=== PATIENT | female | born 1980 | race Two or more races ===

== ENCOUNTER 2017-10-18 03:08 | Emergency (ER) | payer BC ==
[2017-10-18 03:17] VITALS: BP 114/67
[2017-10-18] MEDS ORDERED: Sodium Chloride 0.9% 10 ML Syringe FLUSH PRN (03:56)
[2017-10-18] MEDS ORDERED: Ondansetron 4 MG/2 ML SDV IVPUSH ONE (03:57)
[2017-10-18] MEDS ORDERED: Famotidine 20 MG/2 ML SDV IVPUSH ONE (03:57)
[2017-10-18] MEDS ORDERED: Sodium Chloride 0.9% 1,000 ML IV ONE (03:57)
--- NOTE | 2017-10-18 03:58 | EDM.PDOC ---
ED HPI GENERAL MEDICAL PROBLEM - General Chief Complaint: Respiratory Problem Stated Complaint: VOMMITING AND SOB Time Seen by Provider: 10/18/17 03:56 Source of Information: Reports: Patient History Limitations: Reports: No Limitations - History of Present Illness INITIAL COMMENTS - FREE TEXT/NARRATIVE: The patient is a 37-year-old female who woke from sleep this evening with shortness of breath and vomiting. She states that she vomited several times before arriving to the emergency department. She also feels mildly short of breath. No chest pain. She feels dizzy. She felt fine when she went to sleep last night. Denies abdominal pain. No diarrhea. No cough. Her children are ill with upper respiratory infections but they don't have vomiting or diarrhea. No known exposure to contaminated food or water. No fever. She is feeling somewhat better but still has some dizziness and nausea. 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: - Past Surgical History Female Surgical History: Reports: Section Other Female Surgeries/Procedures: x2 Social & Family History - Family History Family Medical History: Noncontributory Cardiac: Reports: Hypertension Endocrine/Metabolic: Reports: Diabetes, type II - Tobacco Use Smoking Status *Q: Unknown Ever Smoked - Caffeine Use Caffeine Use: Reports: None - Recreational Drug Use Recreational Drug Use: No ED ROS GENERAL - Review of Systems Review Of Systems: See Below Constitutional: Denies: Fever HEENT: Reports: No Symptoms Respiratory: Reports: Shortness of Breath Cardiovascular: Denies: Chest Pain Endocrine: Reports: No Symptoms GI/Abdominal: Reports: Nausea, Vomiting : Reports: No Symptoms Musculoskeletal: Reports: No Symptoms Skin: Reports: No Symptoms Neurological: Reports: No Symptoms Psychiatric: Reports: No Symptoms Hematologic/Lymphatic: Reports: No Symptoms Immunologic: Reports: No Symptoms ED EXAM, GENERAL - Physical Exam Exam: See Below Exam Limited By: No Limitations General Appearance: Alert, WD/WN, No Apparent Distress Eye Exam: Bilateral Eye: Normal Inspection Ears: Normal External Exam Nose: Normal Inspection Throat/Mouth: Normal Inspection, Normal Oropharynx, Normal Voice, No Airway Compromise Head: Atraumatic, Normocephalic Neck: Normal Inspection, Supple, Non-Tender, Full Range of Motion Respiratory/Chest: No Respiratory Distress, Lungs Clear, Normal Breath Sounds, No Accessory Muscle Use, Chest Non-Tender Cardiovascular: Normal Peripheral Pulses, Regular Rate, Rhythm, No Edema GI/Abdominal: Soft, Non-Tender, No Distention Back Exam: Normal Inspection Extremities: Normal Inspection, No Pedal Edema Neurological: Alert, Oriented, CN II-XII Intact, Normal Cognition, No Motor/ Sensory Deficits Psychiatric: Normal Affect, Normal Mood Skin Exam: Warm, Dry, Intact, Normal Color, No Rash Course - Vital Signs Last Recorded V/S: Last Vital Signs Temp 36.6 C 10/18/17 03:14 Pulse 70 10/18/17 03:14 Resp 18 10/18/17 03:14 BP 114/67 10/18/17 03:14 Pulse Ox 100 10/18/17 03:14 - Orders/Labs/Meds Orders: Active Orders 24 hr Category Date Time Status EKG 12 Lead [EKG Documentation Completion] [RC] STAT Care 10/18/17 03:56 Active Peripheral IV Care [RC] . DIRECTED Care 10/18/17 03:56 Active Peripheral IV Care [RC] . DIRECTED Care 10/18/17 03:56 Active Chest 1V Frontal [CR] Stat Exams 10/18/17 03:56 Taken UA W/MICROSCOPIC [URIN] Stat Lab 10/18/17 03:56 Stop Req Sodium Chloride 0.9% [Saline Flush] Med 10/18/17 03:56 Active 10 ml FLUSH ASDIRECTED PRN Peripheral IV Insertion Adult [OM.PC] Routine Oth 10/18/17 03:56 Ordered Medication Orders Sodium Chloride (Saline Flush) 10 ml FLUSH ASDIRECTED PRN PRN Reason: Keep Vein Open Last Admin: 10/18/17 04:25 Dose: 10 ml Labs: Laboratory Tests 10/18/17 10/18/17 Range/Units 04:27 04:27 WBC 8.77 (3.98-10.04) K/mm3 RBC 5.03 (3.98-5.22) M/mm3 Hgb 13.8 (11.2-15.7) gm/L Hct 41.9 (34.1-44.9) % MCV 83.3 (79.4-94.8) fl MCH 27.4 (25.6-32.2) pg MCHC 32.9 (32.2-35.5) g/dl RDW Std Deviation 41.6 (36.4-46.3) fL Plt Count 355 (182-369) K/mm3 MPV 9.1 L (9.4-12.3) fl Neut % (Auto) 72.1 H (34.0-71.1) % Lymph % (Auto) 19.0 L (19.3-51.7) % [place] % (Auto) 6.8 (4.7-12.5) % Eos % (Auto) 1.6 (0.7-5.8) Baso % (Auto) 0.3 (0.1-1.2) % Neut # (Auto) 6.31 H (1.56-6.13) K/mm3 Lymph # (Auto) 1.67 (1.18-3.74) K/mm3 [place] # (Auto) 0.60 H (0.24-0.36) K/mm3 Eos # (Auto) 0.14 (0.04-0.36) K/mm3 Baso # (Auto) 0.03 (0.01-0.08) K/mm3 Sodium 138 (136-145) mEq/L Potassium 3.8 (3.5-5.1) mEq/L Chloride 103 (98-107) mEq/L Carbon Dioxide 27 (21-32) mEq/L Anion Gap 11.8 (5-15) BUN 14 (7-18) mg/dL Creatinine 0.8 (0.55-1.02) mg/dL Est Cr Clr Drug Dosing 71.24 mL/min Estimated GFR (MDRD) > 60 (>60) mL/min BUN/Creatinine Ratio 17.5 (14-18) Glucose 145 H (74-106) mg/dL Calcium 8.8 (8.5-10.1) mg/dL Magnesium 2.0 (1.8-2.4) mg/dl Total Bilirubin 0.3 (0.2-1.0) mg/dL AST 15 (15-37) U/L ALT 26 (14-59) U/L Alkaline Phosphatase 89 (46-116) U/L Troponin I < 0.017 (0.00-0.056) ng/mL Total Protein 8.4 H (6.4-8.2) g/dl Albumin 3.8 (3.4-5.0) g/dl Globulin 4.6 gm/dL Albumin/Globulin Ratio 0.8 L (1-2) Lipase 115 (73-393) U/L Meds: Medications Generic Name Dose Route Start Last Admin Trade Name Freq PRN Reason Stop Dose Admin Sodium Chloride 10 ml 10/18/17 03:56 10/18/17 04:25 Saline Flush FLUSH 10 ml ASDIRECTED PRN Administration Keep Vein Open Discontinued Medications Generic Name Dose Route Start Last Admin Trade Name Freq PRN Reason Stop Dose Admin Famotidine 20 mg 10/18/17 03:57 10/18/17 04:25 Pepcid IVPUSH 10/18/17 03:58 20 mg ONETIME ONE Administration Sodium Chloride 1,000 mls @ 1,000 mls/hr 10/18/17 03:57 10/18/17 04:25 Normal Saline IV 10/18/17 04:56 1,000 mls/hr ONETIME ONE Administration Ondansetron HCl 4 mg 10/18/17 03:57 10/18/17 04:26 Zofran IVPUSH 10/18/17 03:58 4 mg ONETIME ONE Administration - Re-Assessments/Exams Free Text/Narrative Re-Assessment/Exam: 10/18/17 05:01 EKG shows normal sinus rhythm, T-wave inversion in lead V2 and T-wave flattening in lead 3, no significant ST abnormality. CBC is normal. Her vital signs are normal. CXR shows no acute abnormality. Labs including CBC, chem, LFT' s, lipase, trop, are all normal. She is feeling much better after fluids and zofran. 10/18/17 05:10 Departure - Departure Time of Disposition: 05:08 Disposition: Home, Self-Care 01 Clinical Impression: Vomiting Qualifiers: Vomiting type: unspecified Vomiting Intractability: non-intractable Nausea presence: with nausea Qualified Code(s): R11.2 - Nausea with vomiting, unspecified - Discharge Information Prescriptions: Ondansetron [Zofran ODT] 4 mg PO Q6H PRN #12 tab.dis PRN Reason: Nausea Referrals: Ida Cuevas PA [Primary Care Provider] - Forms: ED Department Discharge Additional Instructions: 1. Drink plenty of fluids. 2. Take zofran as needed for nausea 3. Return to the ED if you have severe vomiting, abdominal pain, fever, difficulty breathing, or other concerning symptoms 4. You may also follow up with a primary care provider. Call [phone] if you'd like to schedule with a provider here. - My Orders Last 24 Hours: My Active Orders 10/18/17 03:56 EKG 12 Lead [EKG Documentation Completion] [RC] STAT Peripheral IV Care [RC] . DIRECTED Peripheral IV Care [RC] . DIRECTED Chest 1V Frontal [CR] Stat UA W/MICROSCOPIC [URIN] Stat Sodium Chloride 0.9% [Saline Flush] 10 ml FLUSH ASDIRECTED PRN Peripheral IV Insertion Adult [OM.PC] Routine - Assessment/Plan Last 24 Hours: My Active Orders 10/18/17 03:56 EKG 12 Lead [EKG Documentation Completion] [RC] STAT Peripheral IV Care [RC] . DIRECTED Peripheral IV Care [RC] . DIRECTED Chest 1V Frontal [CR] Stat UA W/MICROSCOPIC [URIN] Stat Sodium Chloride 0.9% [Saline Flush] 10 ml FLUSH ASDIRECTED PRN Peripheral IV Insertion Adult [OM.PC] Routine
--- NOTE | 2017-10-19 08:29 | CR ---
Chest: Frontal view of the chest was obtained. Comparison: No prior chest x-ray. Heart size is slightly generous but most likely accentuated from technique. Upper mediastinum is normal. Lungs are clear. Bony structures appear grossly intact. Impression: 1. Nothing acute is appreciated on frontal chest x-ray. Diagnostic code #2
== END 2017-10-18 05:15 | disposition home or self-care (01) ==
LOC: JD.ED 03:08
DX: R11.2 Nausea with vomiting, unspecified (principal)
CPT/HCPCS: 36415; 71045; 80053; 83690; 83735; 84484; 85025; 93005; 96361; 96374; 96375; 99284; J2405; J7040; J7050; 93010

== ENCOUNTER 2018-10-20 05:29 | Inpatient (IN) | payer BC ==
--- NOTE | 2018-10-19 20:33 | PCM.LDHP ---
L&D History of Present Illness - General Date of Service: 10/20/18 Admit Problem/Dx: Admission Diagnosis/Problem Admission Diagnosis/Problem 10/19/18 20:19 Dalia is a 38-year-old 3 para 2003 female who is admitted on 2018 for elective repeat section. DAYNE 10/25/2018 placing her presently at 39-2/7 weeks gestational age. Previous section was done in the [facility] and type of uterine scar is unknown. Source of Information: Patient History Limitations: Reports: No Limitations - History of Present Illness Introduction:: Dalia is a 38-year-old 3 para 2003 female who is admitted on 2018 for elective repeat section. DAYNE 10/25/2018 placing her presently at 39-2/7 weeks gestational age. Previous section was done in the [facility] and type of uterine scar is unknown. 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 She was seen on a reasonably regular basis during the course of her . Her weight gain was from 140.2 pounds up to 179 pounds 4 approximately 39 pound weight gain. Patient had her 1 hour GTT done rather late in due to her failure to come in for the tests. This came back elevated and patient declined doing a 3 hour glucose tolerance test. Her GTT was 166. The patient underwent a ingrown A1c which was also elevated and patient was given the diagnosis of gestational diabetic. Her blood sugars were monitored, found to be elevated and patient was started on glyburide. Glyburide was increased to 5 mg by mouth daily at bedtime. Patient however did not tolerate this well and stopped it altogether. She has not been restarted on glyburide 2.5 mg. Her blood sugars have been less than optimally controlled. Patient has reported that she has not followed the diet as closely as she should 've. Clinical history and findings consistent with suboptimally controlled station diabetes cannot rule out the possibility of adult-onset diabetes as patient was checked prior to the . Patient declined genetic testing. The PDS score on 06/14/2018 was 0/30. She is group B strep positive. plans to breast-feed. Ultrasound was done 4 during the course of at 13-3/7 weeks, 16-1/7 weeks and 22-6/7 weeks and at 30-5/7 weeks. All of been fairly consistent with her certain last menstrual period 01/18/2018 dating for an DAYNE of 10/25/2018. Fundal height growth has been ahead of schedules last fundal height measurement at 45 cm. Previous history shows menarche at age 9. He can see of menses every 28-30 days. No control contraception. Final certain DAYNE was 01/18/2018. Her deliveries have included the followin. Male infant born 10/16/2017 at 38 weeks gestational age. 9 lbs. 13 oz. born via repeat section at [facility] child's name is ramu 2. Female born 07/10/2012 at 40 weeks' gestational age after 13 hours of labor7 lbs. 6 oz. infant born by section done for failure to progress. Child's name is Erick Laboratory testing shows blood to be O+ with negative DE screen. First hemoglobin is 12.6 g deciliter and platelets were 333,000. She is rubella immune. RPR is nonreactive. Urine culture was unremarkable. Hepatitis B surface antigen and HIV assays were both negative. Her chlamydia and gonorrhea assays were both negative. Second trimester labs showed hemoglobin 11.1 g/dL and platelets 362,000. Her 1 hour GTT was 166. Hemoglobin A1c was elevated and patient was given the diagnosis of gestational hypertension. Group B strep screen was positive Allergies: None Medications: 1. vitamins 1 by mouth daily 2. Glyburide 2.5 mg by mouth daily Past medical history: 1. Gestational diabetes. Past surgical history: 1. 2 Family history: Father is alive with adult onset diabetes mellitus diagnosis. Mother is alive with hypercholesterolemia and goutpresently on medications. 3 brothers alive and well. One sister secondary to motor vehicle accident. No bleeding, blood clotting, anesthesia or -related problems otherwise noted in the family. 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 She is a college graduate. She does not use any significant muscle L call, drugs or tobacco. She lives in [facility] with her Jake. Review of systems: In general patient has no complaints. Very uncomfortable secondary to the size of her . In active. Skin: Negative Lungs: No infectious symptoms or shortness of breath Cardiovascular: No chest pain or exercise intolerance Breasts: Changes associated with . GI: Negative : changes including increased fundal height. Fundal height presently at 45 cm on last evaluation clinic. Musculoskeletal: Negative Neurological: Negative In general the patient is well-developed, well-nourished, pleasant female of stated age in no acute distress. Skin is warm dry without lesions. HEENT, neck and back within normal limits. Lungs are clear with good breath sounds in all lung guadarrama. Cardiovascular exam shows regular and rhythm without murmurs. Breast exam deferred having been done at time of first visit and found to be normal. Patient plans to breast-feed. Nipples have been noted to be everted. Abdomen is very protuberant . Fundal height 45; last evaluation clinic. Genital exam is not performed as was declined by the patient. Extremities and neurological exam are grossly within normal limits. 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: - Past Surgical History Female Surgical History: Reports: Section Other Female Surgeries/Procedures: x2 Social & Family History - Family History Family Medical History: Noncontributory Cardiac: Reports: Hypertension Endocrine/Metabolic: Reports: Diabetes, type II - Caffeine Use Caffeine Use: Reports: None H&P Review of Systems - Review of Systems: Review Of Systems: See Below L&D Exam - Exam Exam: See Below - Patient Data Lab Results Last 24 hrs: Laboratory Results - last 24 hr 10/19/18 Range/Units 18:15 WBC 7.84 (3.98-10.04) K/mm3 RBC 4.35 (3.98-5.22) M/mm3 Hgb 11.1 L (11.2-15.7) gm/L Hct 35.1 (34.1-44.9) % MCV 80.7 D (79.4-94.8) fl MCH 25.5 L (25.6-32.2) pg MCHC 31.6 L (32.2-35.5) g/dl RDW Std Deviation 50.4 H (36.4-46.3) fL Plt Count 291 (182-369) K/mm3 MPV 10.5 (9.4-12.3) fl Result Diagrams: 10/19/18 18:15 Problem List Initiated/Reviewed/Updated: Yes Orders Last 24hrs: Active Orders 24 hr Category Date Time Status TYPE AND SCREEN [BBK] Routine Lab 10/19/18 18:15 Received Assessment/Plan Comment:: 1. 39-2/7 week gestational age admitted for elective repeat section. 2. History of gestational diabetes that is less than optimally controlled. History of macrosomic infant with last pregnancy9 lbs. 13 oz. 3. Group B strep screen positive 4. History of previous section 2 5. Rubella immune. Plan: 1. Repeat lower uterine segment transverse section through Pfannenstiel skin incision under spinal block. Procedure, risks, benefits, alternatives of care including attempt at vaginal delivery are discussed with patient. She appears to understand, wishes to proceed and has signed a consent. 2. DVT prophylaxis with SCDs 3. Infection prophylaxis with 2 g Ancef IV prior to surgery 4. Preoperative laboratory testing with CBC, type and screen, RPR 5. Routine care.
[~2018-10-20 05:29] MED LIST: Citric Acid/Sodium Citrate Solution 30 ML Cup PO ONE; Metoclopramide 10 MG/2 ML SDV IVPUSH ONE; Nalbuphine 10 MG/1 ML Vial IVPUSH PRN; Sodium Chloride 0.9% 10 ML Syringe FLUSH PRN; ceFAZolin 2 GM in Premix Bag 1 BAG IV ONE
[2018-10-20] MEDS ORDERED: Lactated Ringers 1,000 ML ONE ×3 (06:09→08:41)
[2018-10-20] MEDS ORDERED: Citric Acid/Sodium Citrate Solution 30 ML Cup ONE (06:09)
[2018-10-20] MEDS ORDERED: Metoclopramide 10 MG/2 ML SDV ONE (06:09)
[2018-10-20] MEDS: Lactated Ringers 1,000 ML IV SCH ×2 (06:14→06:43)
[2018-10-20] MEDS ORDERED: Bupivacaine 0.5% 30 ML SDV ONE (06:47)
[2018-10-20] MEDS ORDERED: Morphine PF 10 MG/10 ML SDV ONE (07:15)
[2018-10-20] MEDS ORDERED: ceFAZolin 1 GM Vial ONE (07:15)
[2018-10-20] MEDS ORDERED: Phenylephrine 1% 10 MG/ML SDV ONE (07:15)
[2018-10-20] MEDS ORDERED: Oxytocin 10 Units/1 ML SDV ONE ×2 (07:18→08:09)
[2018-10-20] MEDS ORDERED: Ketorolac 30 MG/ML SDV ONE (07:18)
[2018-10-20] MEDS ORDERED: Methylergonovine 0.2 MG/1 ML Amp ONE (08:15)
--- NOTE | 2018-10-20 09:08 | PCM.POSTAN ---
POST ANESTHESIA ASSESSMENT - MENTAL STATUS Mental Status: Alert, Oriented - VITAL SIGNS Pulse Rate: 65 SaO2: 97 Resp Rate: 15 Blood Pressure: 97/50 Temperature: 36.5 C - RESPIRATORY Respiratory Status: Respiratory Rate WNL, Airway Patent, O2 Saturation Stable, Supplemental Oxygen - CARDIOVASCULAR CV Status: Pulse Rate WNL, Blood Pressure Stable - GASTROINTESTINAL GI Status: No Symptoms - PAIN Pain Score: 0 - POST OP HYDRATION Hydration Status: Adequate & Stable - OBSERVATIONS Free Text/Narrative:: no anesthesia complications noted
--- NOTE | 2018-10-20 09:10 | PCM.PREANE ---
Preanesthetic Assessment - Anesthesia/Transfusion/Family Hx Anesthesia History: Prior Anesthesia Without Reaction Family History of Anesthesia Reaction: No Transfusion History: No Prior Transfusion(s) Type of Transfusion Reactions: Reports: Unknown - Review of Systems General: Malaise Pulmonary: No Symptoms Cardiovascular: Dyspnea on Exertion Gastrointestinal: Abdominal Pain (contractions) Neurological: No Symptoms Other: Reports: Diabetes (gestational 96 this am) - Physical Assessment NPO Status Date: 10/19/18 NPO Status Time: 21:00 Pulse: 65 O2 Sat by Pulse Oximetry: 97 Respiratory Rate: 15 Blood Pressure: 97/50 Temperature: 36.5 C Vital Signs: Last Vital Signs Temp 36.5 C 10/20/18 09:08 Pulse 65 10/20/18 09:08 Resp 15 10/20/18 09:08 BP 97/50 L 10/20/18 09:08 Pulse Ox 97 10/20/18 09:08 Height: 1.55 m Weight: 83.416 kg ASA Class: 2 Mental Status: Alert & Oriented x3 Airway Class: Mallampati = 1 Dentition: Reports: Normal Dentition Thyro-Mental Finger Breadths: 3 Mouth Opening Finger Breadths: 3 ROM/Head Extension: Full Lungs: Clear to Auscultation, Normal Respiratory Effort Cardiovascular: Regular Rate, Regular Rhythm - Lab Values: Laboratory Last Values WBC 7.84 K/mm3 (3.98-10.04) 10/19/18 18:15 RBC 4.35 M/mm3 (3.98-5.22) 10/19/18 18:15 Hgb 11.1 gm/L (11.2-15.7) L 10/19/18 18:15 Hct 35.1 % (34.1-44.9) 10/19/18 18:15 MCV 80.7 fl (79.4-94.8) D 10/19/18 18:15 MCH 25.5 pg (25.6-32.2) L 10/19/18 18:15 MCHC 31.6 g/dl (32.2-35.5) L 10/19/18 18:15 RDW Std Deviation 50.4 fL (36.4-46.3) H 10/19/18 18:15 Plt Count 291 K/mm3 (182-369) 10/19/18 18:15 MPV 10.5 fl (9.4-12.3) 10/19/18 18:15 POC Glucose 92 mg/dL (70-105) 10/20/18 05:50 Blood Type O POSITIVE 10/19/18 18:15 Gel Antibody Screen Negative 10/19/18 18:15 - Allergies Allergies/Adverse Reactions: Allergies Allergy/AdvReac Type Severity Reaction Status Date / Time No Known Allergies Allergy Verified 10/20/18 05:07 - Anesthesia Plan Pre-Op Medication Ordered: None - Acknowledgements Anesthesia Type Planned: Spinal Pt an Appropriate Candidate for the Planned Anesthesia: Yes Alternatives and Risks of Anesthesia Discussed w Pt/Guardian: Yes Pt/Guardian Understands and Agrees with Anesthesia Plan: Yes PreAnesthesia Questionnaire - Past Health History Medical/Surgical History: Denies Medical/Surgical History Gastrointestinal History: Reports: GERD 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: Endocrine/Metabolic History: Reports: Diabetes, Gestational - Past Surgical History Female Surgical History: Reports: Section Other Female Surgeries/Procedures: x2 - SUBSTANCE USE Smoking Status *Q: Former Smoker Tobacco Use Within Last Twelve Months: Cigarettes Recreational Drug Use History: No - HOME MEDS Home Medications: Home Meds Ondansetron [Zofran ODT] 4 mg PO Q6H PRN #12 tab.dis 10/18/17 [Rx] glyBURIDE [Glyburide] 2.5 mg PO DAILY 10/05/18 [History] Pnv No.122/Iron/Folic Acid [ Multi Tablet] 1 each PO DAILY 10/20/18 [ History] - CURRENT (IN HOUSE) MEDS Current Meds: Current Medications Lactated Ringer's (Ringers, Lactated) 1,000 mls @ 125 mls/hr IV ASDIRECTED [facility] Last Admin: 10/20/18 06:43 Dose: 125 mls/hr Oxytocin 20 unit/ Lactated (Ringer's) 1,002 mls @ 500 mls/hr IV ASDIRECTED [facility] Cefazolin Sodium/Dextrose 1 gm (/ Premix) 25 mls @ 100 mls/hr IV Q8H QUAN Nalbuphine HCl (Nubain) 10 mg IVPUSH Q2H PRN PRN Reason: Pain Sodium Chloride (Saline Flush) 10 ml FLUSH ASDIRECTED PRN PRN Reason: Keep Vein Open Discontinued Medications Bupivacaine HCl (Marcaine 0.5%) Confirm Administered Dose 30 ml .ROUTE .STK-MED ONE Stop: 10/20/18 06:48 Cefazolin Sodium (Ancef) Confirm Administered Dose 2 gm .ROUTE .STK-MED ONE Stop: 10/20/18 07:16 Citric Acid/Sodium Citrate (Bicitra Solution) 30 ml PO ONETIME ONE Stop: 10/20/18 05:03 Last Admin: 10/20/18 07:12 Dose: 30 ml Citric Acid/Sodium Citrate (Bicitra Solution) Confirm Administered Dose 30 ml .ROUTE .STK-MED ONE Stop: 10/20/18 06:10 Last Admin: 10/20/18 07:38 Dose: Not Given Cefazolin Sodium/Dextrose 2 gm (/ Premix) 50 mls @ 100 mls/hr IV ONETIME ONE Stop: 10/20/18 05:31 Lactated Ringer's (Ringers, Lactated) Confirm Administered Dose 1,000 mls @ as directed .ROUTE .STK-MED ONE Stop: 10/20/18 06:10 Last Admin: 10/20/18 07:38 Dose: Not Given Lactated Ringer's (Ringers, Lactated) Confirm Administered Dose 1,000 mls @ as directed .ROUTE .STK-MED ONE Stop: 10/20/18 07:19 Lactated Ringer's (Ringers, Lactated) Confirm Administered Dose 1,000 mls @ as directed .ROUTE .STK-MED ONE Stop: 10/20/18 08:42 Ketorolac Tromethamine (Toradol) Confirm Administered Dose 30 mg .ROUTE .STK- MED ONE Stop: 10/20/18 07:19 Methylergonovine Maleate (Methergine) Confirm Administered Dose 0.2 mg .ROUTE .STK-MED ONE Stop: 10/20/18 08:16 Metoclopramide HCl (Reglan) 10 mg IVPUSH ONETIME ONE Stop: 10/20/18 05:03 Last Admin: 10/20/18 07:13 Dose: 10 mg Metoclopramide HCl (Reglan) Confirm Administered Dose 10 mg .ROUTE .STK-MED ONE Stop: 10/20/18 06:10 Last Admin: 10/20/18 07:38 Dose: Not Given Morphine Sulfate (Duramorph Pf) Confirm Administered Dose 10 mg .ROUTE .STK-MED ONE Stop: 10/20/18 07:16 Oxytocin (Pitocin) Confirm Administered Dose 10 unit .ROUTE .STK-MED ONE Stop: 10/20/18 07:19 Oxytocin (Pitocin) Confirm Administered Dose 10 unit .ROUTE .STK-MED ONE Stop: 10/20/18 08:10 Phenylephrine HCl (Raheel-Synephrine) Confirm Administered Dose 10 mg .ROUTE .STK- MED ONE Stop: 10/20/18 07:16
--- NOTE | 2018-10-20 09:11 | PCM.OPNOTE ---
- General Post-Op/Procedure Note Date of Surgery/Procedure: 10/20/18 Operative Procedure(s): Repeat lower uterine segment transverse section through Pfannenstiel skin incision Findings: Patient had a previous vertical midline skin/abdominal wall incision from her previous C-sections 2. The anterior abdominal wall was adhered and the anterior uterus was adhered to the front wall. Anterior uterus was adhered to the front abdominal wall essentially occluding the peritoneal reflection on the front side uterus. Baby is in an oblique position with head in the right lower quadrant but not engaged in the pelvis. Baby weighed 11 pounds 15.1 ounces, had Apgars of 2, 4 and 6 at 1, 5 and 10 minutes. Right ovary and fallopian tube appeared normal. Uterus was enlarged up as appropriate for the size of the baby. Left ovary and fallopian tube appeared to be surgically absent. There was dense adhesions on the left side which essentially did not allow the left side uterus to be externalized for closure. Amniotic fluid was clear. Pre Op Diagnosis: 1. 39-2/7 week intrauterine . 2. History of macrosomia, suspected macrosomia. 3. Suboptimally controlled diabetes in . 4. History of previous 2vertical midline abdominal incision, unknown uterine incision Post-Op Diagnosis: Same with 11 pounds 15.1 ounces female with Apgars 2, 4 and 6 at one, 5 and 10 minutes. Severe pelvic adhesions Anesthesia Technique: Spinal Other Anesthesia Type: Marcaine 0.5%20 mL total Primary Surgeon: Chuy Gallego Secondary Surgeon: Kristopher Hopper Anesthesia Provider: Jairo Fisher Faculty Head: Aaron Chaparro Reason Faculty Head Was Necessary: Retraction, assistance, patient safety, quality of care. Fluid Replacement, Intraop: 3,200 Output, Urine Amount: 550 EBL in mLs: 1,200 Drain/Tube Comments:: Indwelling bladder catheter Complications: None Condition: Good Free Text/Narrative:: Intake & Output 10/19/18 10/20/18 10/20/18 22:59 06:59 14:59 Intake Total 1000 Balance 1000 Surgery duration: 51 minutes Surgery duration: Procedure: The patient is appropriately consented. Patient was transferred to the room and placed in a sitting position. Spinal anesthesia was administered. After confirmation of adequate anesthesia patient was placed in a supine position with a wedge under her right side to facilitate left lateral positioning. The patient was prepped and draped in usual fashion after Villarreal catheter was already placed . The anesthetic was checked and found to be adequate. 20 mL of Marcaine 0.5% was injected locally in the Pfannenstiel incision site. The Pfannenstiel skin incision was then made and carried down through skin, subcutaneous and fascial layers. The fascia was then undermined superiorly and inferiorly to allow for adequate operating room. The recti muscles midline and preperitoneal fat was bluntly dissected. The attempt was made to enter the peritoneal cavity. This was not successful as the peritoneal reflection anteriorly was totally obliterated with scar tissue. Anterior surface of the uterus was encountered and incised in low transverse fashion to the level of the amniotic sac. Amniotic sac was ruptured resulting clear amniotic fluid. This was extended bluntly in a bilateral fashion. The was found to be in oblique position with head in right lower quadrant and not engaged. It was positioned in a somewhat asynclitic fashion. Using fundal pressure attempt was made to deliver today's head. This is unsuccessful. Skin was extended bilaterally to enlarge the incision. The vertical midline incision uterus was extended even further and with this the baby was successfully delivered. Cord clamped 2 cut and baby was handed off to Dr. Maldonado, bead forming machine set up operator. The nose and mouth were bulb suctioned. Placenta was expressed after cord blood was obtained. Uterus was then exteriorized to allow for easier closure. The cervix was assessed and found to be dilated adequately to allow egress of blood. The uterine midline incision was closed with running lock suture of 0 Monocryl and a second layer was placed for hemostasis and strengthening reasons. The uterus was closed in 2 layers. The first layer a running locked suture of 0 Monocryl, the second layer a running locked vertical mattress suture of 0 Monocryl. The uterus was returned to the abdominal cavity and lateral gutters were cleared of blood. Once again sponge needle counts are correct. The anterior abdominal wall was closed with a #1 PDS suture from angle to angle. The subcutaneous area was found to be free of any bleeders. Skin was closed with a running subcuticular stitch of 3-0 Monocryl in a vertical mattress suture fashion using a Richard needle. Prineo mesh /glue was then applied to further approximate the incision. It should be noted that patient received 2 g of Ancef preoperatively for infection prophylaxis and had Pitocin infused after delivery of the placenta to facilitate uterine contraction. She also had sequential compression stockings in place for DVT prophylaxis. Patient was discharged from the operating room in satisfactory condition.
[2018-10-20] MEDS ORDERED: Ondansetron 4 MG/2 ML SDV IVPUSH STA (09:20)
[2018-10-20] MEDS ORDERED: Docusate Sodium 100 MG Cap PO PRN (10:16)
[2018-10-20] MEDS ORDERED: ePHEDrine 50 MG/ML SDV IVPUSH PRN (10:16)
[2018-10-20] MEDS ORDERED: Dextrose 5%-Lactated Ringers 1,000 ML IV SCH (10:16)
[2018-10-20] MEDS ORDERED: Naloxone 0.4 MG/ML SDV IVPUSH PRN (10:16)
[2018-10-20] MEDS ORDERED: diphenhydrAMINE 50 MG/ML SDV IVPUSH PRN (10:16)
[2018-10-20] MEDS ORDERED: Lanolin 100% Cream 7 GM Tube TOP PRN (10:16)
[2018-10-20] MEDS ORDERED: Acetaminophen/oxyCODONE 325-5 MG Tab PO PRN (10:16)
[2018-10-20] MEDS: Prenatal Multivitamin with Calcium/Folic Acid/Iron Tab PO SCH (11:06)
[2018-10-20] MEDS ORDERED: Scopolamine 1.5 MG Transdermal Patch TRDERM PRN (12:06)
--- NOTE | 2018-10-20 13:51 | PCM48HPAN ---
Post Anesthesia Note - EVALUATION WITHIN 48HRS OF ANESTHETIC Vital Signs in Normal Range: Yes Patient Participated in Evaluation: Yes Respiratory Function Stable: Yes Airway Patent: Yes Cardiovascular Function Stable: Yes Hydration Status Stable: Yes Pain Control Satisfactory: Yes Nausea and Vomiting Control Satisfactory: Yes Mental Status Recovered: Yes
[2018-10-20] MEDS ORDERED: Lactated Ringers 1,000 ML IV ONE (14:52)
[2018-10-20] MEDS ORDERED: Furosemide 20 MG/2 ML VIAL IVPUSH ONE (16:15)
--- NOTE | 2018-10-20 16:28 | PCM.SN ---
- Free Text/Narrative Note: DOS/DOD Patient has had decreased urine output since surgery. Ordered D5LR 500 ml first hour then 250 ml/hour x2. Still minimal output, ordered Lasix 10 mg IV. Patient alert, stable. Abdomen soft. Incision normal. No heavy vaginal bleeding. No leg cramping. being transfered to [place] by Spinning Supervisor.
[2018-10-20] MEDS: ceFAZolin 1 GM in Premix Bag 1 BAG IV SCH (17:45)
[2018-10-20] MEDS ORDERED: Lactated Ringers 1,000 ML IV SCH (18:00)
--- NOTE | 2018-10-20 22:38 | PCM.SN ---
- Free Text/Narrative Note: Output significantly improved with increased IV fluid bolus and Lasix 10 mg IV.
[2018-10-20] MEDS: Ibuprofen 800 MG Tab PO PRN (23:47)
[2018-10-21] MEDS: ceFAZolin 1 GM in Premix Bag 1 BAG IV SCH (01:07)
[2018-10-21] MEDS: Ferrous Sulfate 325 MG Tab PO SCH (06:48)
[2018-10-21] MEDS: Ibuprofen 800 MG Tab PO PRN ×2 (08:49→17:04)
[2018-10-21] MEDS: Prenatal Multivitamin with Calcium/Folic Acid/Iron Tab PO SCH (08:49)
--- NOTE | 2018-10-21 11:08 | PCM.SN ---
- Free Text/Narrative Note: day one/postop day 1 Patient is afebrile. Hemoglobins morning 6.9 decreased from 11.1 preop and patient states she is not symptomatic. Offered blood transfusion but will withhold same for now unless patient becomes symptomatic repeat CBC in a.m. Incision normal. No leg cramping or tenderness. Blood sugar this morning was 238 after 3 coffees with sugar patient admonished to stay on her consistent carbohydrate diet and to see her open winder after seeing Dr. Gallego if he concurs to control possible adult onset diabetes (type II)
--- NOTE | 2018-10-21 19:02 | PCM.SN ---
- Free Text/Narrative Note: Patient ate at 1630 approximately. Blood sugar now at 6827=883 mg/dl Talked with patient and she has not been following diet (Pizza for supper) Glyburide 500 mg po BID FBS and BS 2 hr after Breakfast, lunch and supper. Admonished to follow Diabetic Diet even after delivery.
[2018-10-21] MEDS: metFORMIN 500 MG Tab PO SCH (19:11)
[2018-10-22] MEDS: Ibuprofen 800 MG Tab PO PRN ×2 (04:51→13:14)
[2018-10-22 06:39] LABS: HEMOGLOBIN A1C 7.6 % (4.50-6.20)
[2018-10-22] MEDS: metFORMIN 500 MG Tab PO SCH (06:48)
[2018-10-22] MEDS: Ferrous Sulfate 325 MG Tab PO SCH (06:48)
[2018-10-22 08:17] VITALS: BP 101/57
--- NOTE | 2018-10-22 10:52 | PCM.DCSUM1 ---
Discharge Summary - Hospital Course Free Text/Narrative:: [facility] Post-Op/Procedure Note Patient Name: KENNEDY PABON Date of : 76 Patient Status: Inpatient Attending Provider: Chuy Gallego Date: 10/20/18 09:05 Initialization Date: 10/20/18 09:05 - General Post-Op/Procedure Note Date of Surgery/Procedure: 10/20/18 Operative Procedure(s): Repeat lower uterine segment transverse section through Pfannenstiel skin incision Findings: Patient had a previous vertical midline skin/abdominal wall incision from her previous C-sections 2. The anterior abdominal wall was adhered and the anterior uterus was adhered to the front wall. Anterior uterus was adhered to the front abdominal wall essentially occluding the peritoneal reflection on the front side uterus. Baby is in an oblique position with head in the right lower quadrant but not engaged in the pelvis. Baby weighed 11 pounds 15.1 ounces, had Apgars of 2, 4 and 6 at 1, 5 and 10 minutes. Right ovary and fallopian tube appeared normal. Uterus was enlarged up as appropriate for the size of the baby. Left ovary and fallopian tube appeared to be surgically absent. There was dense adhesions on the left side which essentially did not allow the left side uterus to be externalized for closure. Amniotic fluid was clear. Pre Op Diagnosis: 1. 39-2/7 week intrauterine . 2. History of macrosomia, suspected macrosomia. 3. Suboptimally controlled diabetes in . 4. History of previous 2vertical midline abdominal incision, unknown uterine incision Post-Op Diagnosis: Same with 11 pounds 15.1 ounces female with Apgars 2, 4 and 6 at one, 5 and 10 minutes. Severe pelvic adhesions Anesthesia Technique: Spinal Other Anesthesia Type: Marcaine 0.5%20 mL total Primary Surgeon: Chuy Gallego Secondary Surgeon: Kristopher Hopper Anesthesia Provider: Jairo Fisher Lead Radiation Therapist: Aaron Chaparro Reason Lead Radiation Therapist Was Necessary: Retraction, assistance, patient safety, quality of care. Fluid Replacement, Intraop: 3,200 Output, Urine Amount: 550 EBL in mLs: 1,200 Drain/Tube Comments:: Indwelling bladder catheter Complications: None Condition: Good Free Text/Narrative:: Intake & Output 10/19/18 10/20/18 10/20/18 22:59 06:59 14:59 Intake Total 1000 Balance 1000 Surgery duration: 51 minutes Surgery duration: Procedure: The patient is appropriately consented. Patient was transferred to the room and placed in a sitting position. Spinal anesthesia was administered. After confirmation of adequate anesthesia patient was placed in a supine position with a wedge under her right side to facilitate left lateral positioning. The patient was prepped and draped in usual fashion after Villarreal catheter was already placed . The anesthetic was checked and found to be adequate. 20 mL of Marcaine 0.5% was injected locally in the Pfannenstiel incision site. The Pfannenstiel skin incision was then made and carried down through skin, subcutaneous and fascial layers. The fascia was then undermined superiorly and inferiorly to allow for adequate operating room. The recti muscles midline and preperitoneal fat was bluntly dissected. The attempt was made to enter the peritoneal cavity. This was not successful as the peritoneal reflection anteriorly was totally obliterated with scar tissue. Anterior surface of the uterus was encountered and incised in low transverse fashion to the level of the amniotic sac. Amniotic sac was ruptured resulting clear amniotic fluid. This was extended bluntly in a bilateral fashion. The was found to be in oblique position with head in right lower quadrant and not engaged. It was positioned in a somewhat asynclitic fashion. Using fundal pressure attempt was made to deliver today's head. This is unsuccessful. Skin was extended bilaterally to enlarge the incision. The vertical midline incision uterus was extended even further and with this the baby was successfully delivered. Cord clamped 2 cut and baby was handed off to Dr. Maldonado, de icer element winder. The nose and mouth were bulb suctioned. Placenta was expressed after cord blood was obtained. Uterus was then exteriorized to allow for easier closure. The cervix was assessed and found to be dilated adequately to allow egress of blood. The uterine midline incision was closed with running lock suture of 0 Monocryl and a second layer was placed for hemostasis and strengthening reasons. The uterus was closed in 2 layers. The first layer a running locked suture of 0 Monocryl, the second layer a running locked vertical mattress suture of 0 Monocryl. The uterus was returned to the abdominal cavity and lateral gutters were cleared of blood. Once again sponge needle counts are correct. The anterior abdominal wall was closed with a #1 PDS suture from angle to angle. The subcutaneous area was found to be free of any bleeders. Skin was closed with a running subcuticular stitch of 3-0 Monocryl in a vertical mattress suture fashion using a Richard needle. Prineo mesh /glue was then applied to further approximate the incision. It should be noted that patient received 2 g of Ancef preoperatively for infection prophylaxis and had Pitocin infused after delivery of the placenta to facilitate uterine contraction. She also had sequential compression stockings in place for DVT prophylaxis. Patient was discharged from the operating room in satisfactory condition. Post-op/ patient has increased her anemia with hemoglobin 6.5 and hemoglobin A1c 7.60 patient refused blood transfusion. The excess suture was cut at skin line prior to dismissal from the Pfannenstiel incision closure. Patient needs to see Dr. Gallego next week in the clinic for evaluation of her diabetes and adjustment of medications if indicated. She is taking metformin 500 mg by mouth twice a day prescription sent to pharmacy. Patient has been instructed multiple times to maintain strict diabetic diet, patient has been not following her diet postop. Blood sugars have been elevated. HPI Initial Comments: [facility] Post-Op/Procedure Note Patient Name: KENNEDY PABON Date of : 76 Patient Status: Inpatient Attending Provider: Chuy Gallego Date: 10/20/18 09:05 Initialization Date: 10/20/18 09:05 - General Post-Op/Procedure Note Date of Surgery/Procedure: 10/20/18 Operative Procedure(s): Repeat lower uterine segment transverse section through Pfannenstiel skin incision Findings: Patient had a previous vertical midline skin/abdominal wall incision from her previous C-sections 2. The anterior abdominal wall was adhered and the anterior uterus was adhered to the front wall. Anterior uterus was adhered to the front abdominal wall essentially occluding the peritoneal reflection on the front side uterus. Baby is in an oblique position with head in the right lower quadrant but not engaged in the pelvis. Baby weighed 11 pounds 15.1 ounces, had Apgars of 2, 4 and 6 at 1, 5 and 10 minutes. Right ovary and fallopian tube appeared normal. Uterus was enlarged up as appropriate for the size of the baby. Left ovary and fallopian tube appeared to be surgically absent. There was dense adhesions on the left side which essentially did not allow the left side uterus to be externalized for closure. Amniotic fluid was clear. Pre Op Diagnosis: 1. 39-2/7 week intrauterine . 2. History of macrosomia, suspected macrosomia. 3. Suboptimally controlled diabetes in . 4. History of previous 2vertical midline abdominal incision, unknown uterine incision Post-Op Diagnosis: Same with 11 pounds 15.1 ounces female infant with Apgars 2, 4 and 6 at one, 5 and 10 minutes. Severe pelvic adhesions Anesthesia Technique: Spinal Other Anesthesia Type: Marcaine 0.5%20 mL total Primary Surgeon: Chuy Gallego Secondary Surgeon: Kristopher Hopper Anesthesia Provider: Jairo Fisher Lead Radiation Therapist: Aaron Chaparro Reason Lead Radiation Therapist Was Necessary: Retraction, assistance, patient safety, quality of care. Fluid Replacement, Intraop: 3,200 Output, Urine Amount: 550 EBL in mLs: 1,200 Drain/Tube Comments:: Indwelling bladder catheter Complications: None Condition: Good Free Text/Narrative:: Intake & Output 10/19/18 10/20/18 10/20/18 22:59 06:59 14:59 Intake Total 1000 Balance 1000 Surgery duration: 51 minutes Surgery duration: Procedure: The patient is appropriately consented. Patient was transferred to the room and placed in a sitting position. Spinal anesthesia was administered. After confirmation of adequate anesthesia patient was placed in a supine position with a wedge under her right side to facilitate left lateral positioning. The patient was prepped and draped in usual fashion after Villarreal catheter was already placed . The anesthetic was checked and found to be adequate. 20 mL of Marcaine 0.5% was injected locally in the Pfannenstiel incision site. The Pfannenstiel skin incision was then made and carried down through skin, subcutaneous and fascial layers. The fascia was then undermined superiorly and inferiorly to allow for adequate operating room. The recti muscles midline and preperitoneal fat was bluntly dissected. The attempt was made to enter the peritoneal cavity. This was not successful as the peritoneal reflection anteriorly was totally obliterated with scar tissue. Anterior surface of the uterus was encountered and incised in low transverse fashion to the level of the amniotic sac. Amniotic sac was ruptured resulting clear amniotic fluid. This was extended bluntly in a bilateral fashion. The was found to be in oblique position with head in right lower quadrant and not engaged. It was positioned in a somewhat asynclitic fashion. Using fundal pressure attempt was made to deliver today's head. This is unsuccessful. Skin was extended bilaterally to enlarge the incision. The vertical midline incision uterus was extended even further and with this the baby was successfully delivered. Cord clamped 2 cut and baby was handed off to Dr. Maldonado, de icer element winder. The nose and mouth were bulb suctioned. Placenta was expressed after cord blood was obtained. Uterus was then exteriorized to allow for easier closure. The cervix was assessed and found to be dilated adequately to allow egress of blood. The uterine midline incision was closed with running lock suture of 0 Monocryl and a second layer was placed for hemostasis and strengthening reasons. The uterus was closed in 2 layers. The first layer a running locked suture of 0 Monocryl, the second layer a running locked vertical mattress suture of 0 Monocryl. The uterus was returned to the abdominal cavity and lateral gutters were cleared of blood. Once again sponge needle counts are correct. The anterior abdominal wall was closed with a #1 PDS suture from angle to angle. The subcutaneous area was found to be free of any bleeders. Skin was closed with a running subcuticular stitch of 3-0 Monocryl in a vertical mattress suture fashion using a Richard needle. Prineo mesh /glue was then applied to further approximate the incision. It should be noted that patient received 2 g of Ancef preoperatively for infection prophylaxis and had Pitocin infused after delivery of the placenta to facilitate uterine contraction. She also had sequential compression stockings in place for DVT prophylaxis. Patient was discharged from the operating room in satisfactory condition. Post-op/ patient has increased her anemia with hemoglobin 6.5 and hemoglobin A1c 7.60 patient refused blood transfusion. The excess suture was cut at skin line prior to dismissal from the Pfannenstiel incision closure. Patient needs to see Dr. Gallego next week in the clinic for evaluation of her diabetes and adjustment of medications if indicated. She is taking metformin 500 mg by mouth twice a day prescription sent to pharmacy. Patient has been instructed multiple times to maintain strict diabetic diet, patient has been not following her diet postop. Blood sugars have been elevated. Brief History: [facility] . Post-Op/Procedure Note. Patient Name: KENNEDY PABON Record Number: [id number]. Date of : 76Patient Status: Inpatient. Attending Provider: Chuy Gallego FAccount Number: [id number]. Date: 10/20/18 09:05Initialization Date: 10/20/18 09:05. - General Post-Op/Procedure Note. Date of Surgery/Procedure: 10/20/18. Operative Procedure(s): Repeat lower uterine segment transverse section through Pfannenstiel skin incision. Findings: Patient had a previous vertical midline skin/abdominal wall incision from her previous C-sections 2. The anterior abdominal wall was adhered and the anterior uterus was adhered to the front wall. Anterior uterus was adhered to the front abdominal wall essentially occluding the peritoneal reflection on the front side uterus. Baby is in an oblique position with head in the right lower quadrant but not engaged in the pelvis. Baby weighed 11 pounds 15.1 ounces, had Apgars of 2, 4 and 6 at 1 , 5 and 10 minutes. Right ovary and fallopian tube appeared normal. Uterus was enlarged up as appropriate for the size of the baby. Left ovary and fallopian tube appeared to be surgically absent. There was dense adhesions on the left side which essentially did not allow the left side uterus to be externalized for closure. Amniotic fluid was clear. Pre Op Diagnosis: 1. 39-2/7 week intrauterine . 2. History of macrosomia, suspected macrosomia. 3. Suboptimally controlled diabetes in . 4. History of previous C- section 2vertical midline abdominal incision, unknown uterine incision. Post- Op Diagnosis: Same with 11 pounds 15.1 ounces female infant with Apgars 2, 4 and 6 at one, 5 and 10 minutes. Severe pelvic adhesions. Anesthesia Technique: Spinal. Other Anesthesia Type: Marcaine 0.5%20 mL total. Primary Surgeon: Chuy Gallego. Secondary Surgeon: Kristopher Hopper. Anesthesia Provider: Jairo Fisher. Lead Radiation Therapist: Aaron Chaparro. Reason Lead Radiation Therapist Was Necessary: Retraction, assistance, patient safety, quality of care. Fluid Replacement, Intraop: 3,200. Output, Urine Amount: 550. EBL in mLs: 1,200. Drain/Tube Comments:: Indwelling bladder catheter. Complications: None. Condition: Good. Free Text/Narrative:: Intake & Output. 10/19/1905/. 22:5906: 5914:59. Intake [id number]. [id number]. Surgery duration: 51 minutes. Surgery duration: Procedure: The patient is appropriately consented. Patient was transferred to the room and placed in a sitting position. Spinal anesthesia was administered. After confirmation of adequate anesthesia patient was placed in a supine position with a wedge under her right side to facilitate left lateral positioning. The patient was prepped and draped in usual fashion after Villarreal catheter was already placed . The anesthetic was checked and found to be adequate. 20 mL of Marcaine 0.5% was injected locally in the Pfannenstiel incision site. The Pfannenstiel skin incision was then made and carried down through skin, subcutaneous and fascial layers. The fascia was then undermined superiorly and inferiorly to allow for adequate operating room. The recti muscles midline and preperitoneal fat was bluntly dissected. The attempt was made to enter the peritoneal cavity. This was not successful as the peritoneal reflection anteriorly was totally obliterated with scar tissue. Anterior surface of the uterus was encountered and incised in low transverse fashion to the level of the amniotic sac. Amniotic sac was ruptured resulting clear amniotic fluid. This was extended bluntly in a bilateral fashion. The was found to be in oblique position with head in right lower quadrant and not engaged. It was positioned in a somewhat asynclitic fashion. Using fundal pressure attempt was made to deliver today's head. This is unsuccessful. Skin was extended bilaterally to enlarge the incision. The vertical midline incision uterus was extended even further and with this the baby was successfully delivered. Cord clamped 2 cut and baby was handed off to Dr. Maldonado, de icer element winder. The nose and mouth were bulb suctioned. Placenta was expressed after cord blood was obtained. Uterus was then exteriorized to allow for easier closure. The cervix was assessed and found to be dilated adequately to allow egress of blood. The uterine midline incision was closed with running lock suture of 0 Monocryl and a second layer was placed for hemostasis and strengthening reasons. The uterus was closed in 2 layers. The first layer a running locked suture of 0 Monocryl, the second layer a running locked vertical mattress suture of 0 Monocryl. The uterus was returned to the abdominal cavity and lateral gutters were cleared of blood. Once again sponge needle counts are correct. The anterior abdominal wall was closed with a #1 PDS suture from angle to angle. The subcutaneous area was found to be free of any bleeders. Skin was closed with a running subcuticular stitch of 3-0 Monocryl in a vertical mattress suture fashion using a Richard needle. Prineo mesh/glue was then applied to further approximate the incision. It should be noted that patient received 2 g of Ancef preoperatively for infection prophylaxis and had Pitocin infused after delivery of the placenta to facilitate uterine contraction. She also had sequential compression stockings in place for DVT prophylaxis. Patient was discharged from the operating room in satisfactory condition. Post-op/ patient has increased her anemia with hemoglobin 6.5 and hemoglobin A1c 7.60 patient refused blood transfusion. The excess suture was cut at skin line prior to dismissal from the Pfannenstiel incision closure. Patient needs to see Dr. Gallego next week in the clinic for evaluation of her diabetes and adjustment of medications if indicated. She is taking metformin 500 mg by mouth twice a day prescription sent to pharmacy. Patient has been instructed multiple times to maintain strict diabetic diet, patient has been not following her diet postop. Blood sugars have been elevated. Diagnosis: Stroke: No - Discharge Data Discharge Date: 10/22/18 Discharge Disposition: Home, Self-Care 01 Condition: Good - Discharge Diagnosis/Problem(s) (1) 39 weeks gestation of SNOMED Code(s): 25779898 ICD Code: Z3A.39 - 39 WEEKS GESTATION OF Status: Acute Current Visit: Yes (2) macrosomia SNOMED Code(s): 53964935 ICD Code: O36.60X0 - MATERNAL CARE FOR EXCESS GROWTH, UNSP TRIMESTER, UNSP Status: Acute Current Visit: Yes Qualifiers: Fetus number: single or unspecified fetus (3) Gestational diabetes SNOMED Code(s): 75563005 ICD Code: O24.419 - GESTATIONAL DIABETES MELLITUS IN , UNSP CONTROL Status: Acute Current Visit: Yes Qualifiers: Gestational diabetes mellitus control: unspecified (4) H/O section complicating SNOMED Code(s): 088587731, 409307637 ICD Code: O34.219 - MATERNAL CARE FOR UNSP TYPE SCAR FROM PREVIOUS DEL Status: Acute Current Visit: Yes (5) Advanced maternal age, delivered, current hospitalization SNOMED Code(s): 56293143, 813448655 ICD Code: O09.529 - SUPERVISION OF ELDERLY MULTIGRAVIDA, UNSPECIFIED TRIMESTER Status: Acute Current Visit: No (6) Anemia during , delivered, current hospitalization SNOMED Code(s): 419767591, 571521850 ICD Code: O99.02 - ANEMIA COMPLICATING CHILDBIRTH Status: Acute Current Visit: No (7) Polyhydramnios, delivered, current hospitalization SNOMED Code(s): 166759736, 729596898 ICD Code: O40.9XX0 - POLYHYDRAMNIOS, UNSP TRIMESTER, NOT APPLICABLE OR UNSP Status: Acute Current Visit: No - Patient Summary/Data Operative Procedure(s) Performed: Repeat lower uterine segment transverse section through Pfannenstiel skin incision Complications: Patient not following her diabetic diet elevated blood sugars and severe anemia and declining blood transfusion Consults: None - Patient Instructions Diet: Diabetic Diet Driving: Do Not Drive (48 hours) Showering/Bathing: May Shower, No Tub Bathing/Swimming (6 weeks) Wound/Incision Care: Keep Operative Site/Wound Site Clean and Dry (External stitch cut at skin line for dismissal from the hospital) Notify Provider of: Fever, Increased Pain, Swelling and Redness, Drainage, Nausea and/or Vomiting - Discharge Plan *PRESCRIPTION DRUG MONITORING PROGRAM REVIEWED*: Not Applicable *COPY OF PRESCRIPTION DRUG MONITORING REPORT IN PATIENT [place]: Not Applicable Prescriptions/Med Rec: Docusate Sodium [Colace Clear] 50 mg PO BID #60 capsule Ferric Citrate [Auryxia] 210 mg PO BID #60 tablet metFORMIN [Glucophage] 500 mg PO BIDMEALS #60 tablet Home Medications: Home Meds Ondansetron [Zofran ODT] 4 mg PO Q6H PRN #12 tab.dis 10/18/17 [Rx] Pnv No.122/Iron/Folic Acid [ Multi Tablet] 1 each PO DAILY 10/20/18 [ History] Docusate Sodium [Colace Clear] 50 mg PO BID #60 capsule 10/22/18 [Rx] Ferric Citrate [Auryxia] 210 mg PO BID #60 tablet 10/22/18 [Rx] Ibuprofen [Motrin] 600 mg PO Q6H PRN tablet 10/22/18 [Rx] Lanolin [Lansinoh HPA] 1 applic TOP ASDIRECTED PRN tube 10/22/18 [Rx] Vit with Ca/FA/Iron [ Plus Iron] 1 each PO DAILY tablet [Rx] metFORMIN [Glucophage] 500 mg PO BIDMEALS #60 tablet 10/22/18 [Rx] Patient Handouts: Coping With Diabetes, Delivery, Care After, Gestational Diabetes Mellitus, Self Care, [id number], Home Care Instructions for Mom Referrals: Chuy Gallego MD [Primary Care Provider] - (Needs to see Dr. Gallego next week for diabetic follow-up bring glucose diary next week to her appointment follow-up.) - Discharge Summary/Plan Comment DC Time >30 min.: No - Patient Data Vitals - Most Recent: Last Vital Signs Temp 97.9 F 10/22/18 08:05 Pulse 99 10/22/18 08:05 Resp 14 10/22/18 08:05 BP 101/57 L 10/22/18 08:05 Pulse Ox 97 10/22/18 08:05 Weight - Most Recent: 183 lb 14.4 oz Lab Results - Last 24 hrs: Laboratory Results - last 24 hr 10/21/18 10/21/18 10/22/18 Range/Units 10:14 18:52 05:10 WBC 18.20 H (3.98-10.04) K/mm3 RBC 2.54 L (3.98-5.22) M/mm3 Hgb 6.5 L* (11.2-15.7) gm/L Hct 21.3 L (34.1-44.9) % MCV 83.9 (79.4-94.8) fl MCH 25.6 (25.6-32.2) pg MCHC 30.5 L (32.2-35.5) g/dl RDW Std Deviation 51.6 H (36.4-46.3) fL Plt Count 263 (182-369) K/mm3 MPV 9.8 (9.4-12.3) fl Neut % (Auto) 80.9 H (34.0-71.1) % Lymph % (Auto) 8.5 L (19.3-51.7) % Posey % (Auto) 8.4 (4.7-12.5) % Eos % (Auto) 1.0 (0.7-5.8) Baso % (Auto) 0.1 (0.1-1.2) % Neut # (Auto) 14.74 H (1.56-6.13) K/mm3 Lymph # (Auto) 1.54 (1.18-3.74) K/mm3 Posey # (Auto) 1.53 H (0.24-0.36) K/mm3 Eos # (Auto) 0.18 (0.04-0.36) K/mm3 Baso # (Auto) 0.01 (0.01-0.08) K/mm3 Manual Slide Review Abnormal smear POC Glucose 235 H 233 H (70-105) mg/dL Hemoglobin A1c (4.50-6.20) % 10/22/18 10/22/18 Range/Units 05:10 05:34 WBC (3.98-10.04) K/mm3 RBC (3.98-5.22) M/mm3 Hgb (11.2-15.7) gm/L Hct (34.1-44.9) % MCV (79.4-94.8) fl MCH (25.6-32.2) pg MCHC (32.2-35.5) g/dl RDW Std Deviation (36.4-46.3) fL Plt Count (182-369) K/mm3 MPV (9.4-12.3) fl Neut % (Auto) (34.0-71.1) % Lymph % (Auto) (19.3-51.7) % Posey % (Auto) (4.7-12.5) % Eos % (Auto) (0.7-5.8) Baso % (Auto) (0.1-1.2) % Neut # (Auto) (1.56-6.13) K/mm3 Lymph # (Auto) (1.18-3.74) K/mm3 Posey # (Auto) (0.24-0.36) K/mm3 Eos # (Auto) (0.04-0.36) K/mm3 Baso # (Auto) (0.01-0.08) K/mm3 Manual Slide Review POC Glucose 191 H (70-105) mg/dL Hemoglobin A1c 7.60 H (4.50-6.20) % Med Orders - Current: Current Medications Diphenhydramine HCl (Benadryl) 25 mg IVPUSH Q6H PRN PRN Reason: Itching or Nausea Docusate Sodium (Colace) 100 mg PO Q12H PRN PRN Reason: Constipation Last Admin: 10/22/18 04:52 Dose: 100 mg Emollient Ointment (Lansinoh Hpa) 0 gm TOP ASDIRECTED PRN PRN Reason: Sore Nipples Ephedrine Sulfate (Ephedrine Sulfate) 5 mg IVPUSH SEECOMMENT PRN PRN Reason: Other Ferrous Sulfate (Ferrous Sulfate) 325 mg PO BRK [facility] Last Admin: 10/22/18 06:48 Dose: 325 mg Lactated Ringer's (Ringers, Lactated) 1,000 mls @ 150 mls/hr IV ASDIRECTED [facility] Last Admin: 10/20/18 18:20 Dose: 150 mls/hr Ibuprofen (Motrin) 800 mg PO Q8H PRN PRN Reason: mild pain or fever Last Admin: 10/22/18 04:51 Dose: 800 mg Metformin HCl (Glucophage) 500 mg PO BIDMEALS [facility] Last Admin: 10/22/18 06:48 Dose: 500 mg Miscellaneous Information (Remove Patch) 1 ea TRDERM Q72H [facility] [facility] Naloxone HCl (Narcan) 0.1 mg IVPUSH SEECOMMENT PRN PRN Reason: Respiratory Depression Oxycodone/Acetaminophen (Percocet 325-5 Mg) 2 tab PO Q4H PRN PRN Reason: Pain (moderate 4-6) Prenat Multivit/Health Associate/Iron/Folic Ac ( Plus Iron) 1 each PO DAILY [facility] Last Admin: 10/21/18 08:49 Dose: 1 each Scopolamine (Transderm-Scop) 1.5 mg TRDERM Q72H PRN PRN Reason: Nausea/Vomiting Last Admin: 10/20/18 13:08 Dose: 1.5 mg Discontinued Medications Bupivacaine HCl (Marcaine 0.5%) Confirm Administered Dose 30 ml .ROUTE .STK-MED ONE Stop: 10/20/18 06:48 Last Admin: 10/20/18 08:00 Dose: 20 ml Cefazolin Sodium (Ancef) Confirm Administered Dose 2 gm .ROUTE .[facility] ONE Stop: 10/20/18 07:16 Citric Acid/Sodium Citrate (Bicitra Solution) 30 ml PO ONETIME ONE Stop: 10/20/18 05:03 Last Admin: 10/20/18 07:12 Dose: 30 ml Citric Acid/Sodium Citrate (Bicitra Solution) Confirm Administered Dose 30 ml .ROUTE .[facility] ONE Stop: 10/20/18 06:10 Last Admin: 10/20/18 07:38 Dose: Not Given Furosemide (Lasix) 10 mg IVPUSH NOW ONE Stop: 10/20/18 16:16 Last Admin: 10/20/18 16:44 Dose: 10 mg Cefazolin Sodium/Dextrose 2 gm (/ Premix) 50 mls @ 100 mls/hr IV ONETIME ONE Stop: 10/20/18 05:31 Last Admin: 10/20/18 11:09 Dose: Not Given Lactated Ringer's (Ringers, Lactated) 1,000 mls @ 125 mls/hr IV ASDIRECTED [facility] Last Admin: 10/20/18 06:43 Dose: 125 mls/hr Oxytocin 20 unit/ Lactated (Ringer's) 1,002 mls @ 500 mls/hr IV ASDIRECTED [facility] Lactated Ringer's (Ringers, Lactated) Confirm Administered Dose 1,000 mls @ as directed .ROUTE .[facility] ONE Stop: 10/20/18 06:10 Last Admin: 10/20/18 07:38 Dose: Not Given Lactated Ringer's (Ringers, Lactated) Confirm Administered Dose 1,000 mls @ as directed .ROUTE .[facility] ONE Stop: 10/20/18 07:19 Lactated Ringer's (Ringers, Lactated) Confirm Administered Dose 1,000 mls @ as directed .ROUTE .[facility] ONE Stop: 10/20/18 08:42 Cefazolin Sodium/Dextrose 1 gm (/ Premix) 25 mls @ 100 mls/hr IV Q8H [facility] Last Admin: 10/21/18 01:07 Dose: 100 mls/hr Dextrose/Lactated Ringer's (Dextrose 5%-Lactated Ringers) 1,000 mls @ 125 mls/ hr IV ASDIRECTED QUAN Stop: 10/20/18 18:15 Last Admin: 10/20/18 11:05 Dose: 125 mls/hr Lactated Ringer's (Ringers, Lactated) 1,000 mls @ 500 mls/hr IV .[facility] ONE Stop: 10/20/18 16:51 Last Admin: 10/20/18 15:04 Dose: 500 mls/hr Cefazolin Sodium/Dextrose (Ancef) Confirm Administered Dose 50 mls @ as directed .ROUTE .STK-MED ONE Stop: 10/21/18 01:03 Last Admin: 10/21/18 05:00 Dose: Not Given Ketorolac Tromethamine (Toradol) Confirm Administered Dose 30 mg .ROUTE .STK- MED ONE Stop: 10/20/18 07:19 Methylergonovine Maleate (Methergine) Confirm Administered Dose 0.2 mg .ROUTE .STK-MED ONE Stop: 10/20/18 08:16 Last Admin: 10/20/18 08:16 Dose: 0.2 mg Metoclopramide HCl (Reglan) 10 mg IVPUSH ONETIME ONE Stop: 10/20/18 05:03 Last Admin: 10/20/18 07:13 Dose: 10 mg Metoclopramide HCl (Reglan) Confirm Administered Dose 10 mg .ROUTE .STK-MED ONE Stop: 10/20/18 06:10 Last Admin: 10/20/18 07:38 Dose: Not Given Morphine Sulfate (Duramorph Pf) Confirm Administered Dose 10 mg .ROUTE .STK-MED ONE Stop: 10/20/18 07:16 Nalbuphine HCl (Nubain) 10 mg IVPUSH Q2H PRN PRN Reason: Pain Ondansetron HCl (Zofran) 4 mg IVPUSH ONETIME STA Stop: 10/20/18 09:21 Last Admin: 10/20/18 09:21 Dose: 4 mg Oxytocin (Pitocin) Confirm Administered Dose 10 unit .ROUTE .STK-MED ONE Stop: 10/20/18 07:19 Oxytocin (Pitocin) Confirm Administered Dose 10 unit .ROUTE .STK-MED ONE Stop: 10/20/18 08:10 Phenylephrine HCl (Raheel-Synephrine) Confirm Administered Dose 10 mg .ROUTE .STK- MED ONE Stop: 10/20/18 07:16 Sodium Chloride (Saline Flush) 10 ml FLUSH ASDIRECTED PRN PRN Reason: Keep Vein Open
[2018-10-22] MEDS: Prenatal Multivitamin with Calcium/Folic Acid/Iron Tab PO SCH (13:23)
== END 2018-10-22 13:15 | disposition home or self-care (01) | DRG 540 ==
LOC: JD.OB 05:29
PROVIDERS: ADMIT Obstetrics & Gynecology; ATTEND Obstetrics & Gynecology
PROC: 10D00Z1 Extraction of Products of Conception, Low, Open Approach (ICD-10-PCS; principal; 2018-10-20)
DX: O34.211 Maternal care for low transverse scar from previous cesarean delivery (principal); O99.824 Streptococcus B carrier state complicating childbirth; O24.425 Gestational diabetes mellitus in childbirth, controlled by oral hypoglycemic drugs; O40.3XX0 Polyhydramnios, third trimester, not applicable or unspecified; O36.63X0 Maternal care for excessive fetal growth, third trimester, not applicable or unspecified; O90.81 Anemia of the puerperium; D64.9 Anemia, unspecified; Z3A.39 39 weeks gestation of pregnancy; Z37.0 Single live birth; Z23 Encounter for immunization
CPT/HCPCS: 01961; 36415; 59025; 82962; 83036; 85025; 85027; 86592; 86850; 86900; 86901; A9270-GY; J0690; J1885; J2210; J2270; J2370; J2405; J2590; J2765; J3490; J7042; J7120